=== PATIENT | female | born 1960 | race Caucasian/White ===

== ENCOUNTER 2019-08-06 08:08 | Emergency (ER) | payer SELFPAY ==
[2019-08-06] MEDS ORDERED: Acetaminophen 325 MG Tab PO ONE (08:38)
[2019-08-06] MEDS ORDERED: Ketorolac 60 MG/2 ML SDV IM ONE (08:38)
--- NOTE | 2019-08-06 08:39 | EDM.PDOC ---
ED HPI GENERAL MEDICAL PROBLEM - General Chief Complaint: Back Pain or Injury Stated Complaint: BACK PAIN Time Seen by Provider: 08/06/19 08:33 Source of Information: Reports: Patient, RN Notes Reviewed - History of Present Illness INITIAL COMMENTS - FREE TEXT/NARRATIVE: 58-year-old lady injured her left low back this morning about 3 hours ago. She had a hard cough with sudden onset of pain left low back. Continues to have pain left low back which is worse with any type of movement. Pain does not radiate down into either leg. Not been having any other back discomfort recently. There has been no fall or injury. She has not taken anything for pain. Left Back Pain Score (Numeric/FACES): 10 - Related Data Allergies Allergy/AdvReac Type Severity Reaction Status Date / Time Penicillins Allergy Cannot Verified 08/06/19 08:26 Remember Sulfa (Sulfonamide Allergy Hives Verified 08/06/19 08:26 Antibiotics) Home Meds: Home Meds Acetaminophen/HYDROcodone [[place] 325-5 MG] 1 tab PO Q6H PRN #10 tablet 08/06/19 [Rx] ED ROS GENERAL - Review of Systems Review Of Systems: See Below Constitutional: Denies: Fever HEENT: Reports: No Symptoms Respiratory: Denies: Shortness of Breath Cardiovascular: Denies: Chest Pain GI/Abdominal: Denies: Abdominal Pain, Nausea, Vomiting Musculoskeletal: Reports: Back Pain. Denies: Leg Pain Skin: Reports: No Symptoms Neurological: Reports: No Symptoms ED EXAM,LOWER BACK PAIN/INJURY - Physical Exam Exam: See Below General Appearance: Alert, Mild Distress Head: Atraumatic Neck: Supple, Non-Tender Respiratory/Chest: No Respiratory Distress, Lungs Clear, Normal Breath Sounds Cardiovascular: Regular Rate, Rhythm GI/Abdominal: Soft, Non-Tender Back Exam: Paraspinal Tenderness (L low back) Extremities: Normal Inspection, Normal Range of Motion Neurological: Alert, No Motor/Sensory Deficits Course - Vital Signs Last Recorded V/S: Last Vital Signs Temp 97.6 F 08/06/19 08:23 Pulse 86 08/06/19 08:23 Resp 18 08/06/19 08:23 BP 116/93 H 08/06/19 08:23 Pulse Ox 96 08/06/19 08:23 - Orders/Labs/Meds Meds: Medications Discontinued Medications Generic Name Dose Route Start Last Admin Trade Name Freq PRN Reason Stop Dose Admin Acetaminophen 975 mg 08/06/19 08:38 Tylenol PO 08/06/19 08:39 NOW ONE Ketorolac Tromethamine 60 mg 08/06/19 08:38 Toradol IM 08/06/19 08:39 ONETIME ONE - Re-Assessments/Exams Free Text/Narrative Re-Assessment/Exam: 08/06/19 09:02 I been informed that patient left her room, apparently went home prior to getting her Toradol. Discharge instructions prepared but patient has eloped. Departure - Departure Time of Disposition: 08:57 Disposition: Home, Self-Care 01 Condition: Fair Clinical Impression: Low back strain - Discharge Information Prescriptions: Acetaminophen/HYDROcodone [[place] 325-5 MG] 1 tab PO Q6H PRN #10 tablet PRN Reason: Pain Instructions: Acute Back Pain, Adult Referrals: PCP,Unknown [Primary Care Provider] - Forms: ED Department Discharge Additional Instructions: Advil or ibuprofen 600 mg 2-3 times daily for pain and inflammation, Tylenol in between doses for extra pain relief or hydrocodone if needed for severe pain. Do not take Tylenol and hydrocodone at the same time. Do not drive or work when taking hydrocodone. Follow up with your regular medical provider if not much better within 3-4 days as expected. Alternate ice and heat to low back as needed.
== END 2019-08-06 09:00 | disposition home or self-care (01) ==
LOC: JD.ED 08:08
DX: S39.012A Strain of muscle, fascia and tendon of lower back, initial encounter (principal); Z88.0 Allergy status to penicillin; Z88.2 Allergy status to sulfonamides; X58.XXXA Exposure to other specified factors, initial encounter
CPT/HCPCS: 99283

== ENCOUNTER 2021-10-30 16:23 | Emergency (ER) | payer OTHER ==
[2021-10-30] MEDS ORDERED: Sodium Chloride 0.9% 10 ML Syringe FLUSH PRN (17:27)
[2021-10-30] MEDS ORDERED: Sodium Chloride 0.9% 1,000 ML IV SCH (17:30)
[2021-10-30] MEDS ORDERED: Sodium Chloride 0.9% 10 ML Syringe FLUSH ONE (17:44)
[2021-10-30] MEDS ORDERED: Iopamidol 612 MG/ML 100 ML Bottle IVPUSH ONE (17:44)
--- NOTE | 2021-10-30 18:32 | EDM.PDOC ---
ED HPI GENERAL MEDICAL PROBLEM - General Chief Complaint: Gastrointestinal Problem Stated Complaint: RASH/REDNESS ABDOMINAL AREA Time Seen by Provider: 10/30/21 17:04 Source of Information: Reports: Patient History Limitations: Reports: No Limitations - History of Present Illness INITIAL COMMENTS - FREE TEXT/NARRATIVE: The patient presents with pain and redness to a ventral hernia. The patient saw Dr Bacon and has surgery scheduled here on 11/07/21. She saw him last week and there was a little redness to the skin over the hernia. Now there is more erythema and pain. She has no fever, chills, cough, chest pain, nausea or vomiting. She has no diarrhea. She is still having bowel movements. Onset: Gradual Duration: Week(s): Location: Reports: Abdomen Quality: Reports: Sharp Severity: Moderate Improves with: Reports: None Worsens with: Reports: None Associated Symptoms: Reports: No Other Symptoms Abdomen Pain Score (Numeric/FACES): 2 - Related Data Allergies Allergy/AdvReac Type Severity Reaction Status Date / Time Penicillins Allergy Cannot Verified 10/30/21 16:56 Remember Sulfa (Sulfonamide Allergy Hives Verified 10/30/21 16:56 Antibiotics) Home Meds: Home Meds cephALEXin [Keflex] 500 mg PO QID #40 cap 10/30/21 [Rx] Past Medical History - Past Health History Medical/Surgical History: Denies Medical/Surgical History Gastrointestinal History: Reports: Other (See Below) Other Gastrointestinal History: Abdominal hernia Social & Family History - Family History Family Medical History: No Pertinent Family History - Tobacco Use Tobacco Use Status *Q: Current Some Day Tobacco User Years of Tobacco use: 30 Packs/Tins Daily: 0.1 - Caffeine Use Caffeine Use: Reports: Coffee - Recreational Drug Use Recreational Drug Use: No ED ROS GENERAL - Review of Systems Review Of Systems: See Below Constitutional: Reports: No Symptoms HEENT: Reports: No Symptoms Respiratory: Reports: No Symptoms Cardiovascular: Reports: No Symptoms Endocrine: Reports: No Symptoms GI/Abdominal: Reports: Abdominal Pain. Denies: Diarrhea, Nausea, Vomiting : Reports: No Symptoms Musculoskeletal: Reports: No Symptoms Skin: Reports: No Symptoms ED EXAM, GI/ABD - Physical Exam Exam: See Below Exam Limited By: No Limitations General Appearance: Alert, No Apparent Distress Ears: Normal External Exam Nose: Normal Inspection Head: Atraumatic, Normocephalic Neck: Normal Inspection Respiratory/Chest: No Respiratory Distress, Lungs Clear, Normal Breath Sounds Cardiovascular: Regular Rate, Rhythm, No Edema, No Murmur GI/Abdominal Exam: Soft, No Organomegaly, Pelvis Stable, Tender (to the ventral hernia with erythema to that area) Course - Vital Signs Last Recorded V/S: Last Vital Signs Temp 97.4 F 10/30/21 16:54 Pulse 68 10/30/21 16:54 Resp 16 10/30/21 16:54 BP 113/83 10/30/21 16:54 Pulse Ox 97 10/30/21 16:54 - Orders/Labs/Meds Orders: Active Orders 24 hr Category Date Time Status Peripheral IV Care [RC] . DIRECTED Care 10/30/21 17:28 Active Sodium Chloride 0.9% [Normal Saline] 1,000 ml Med 10/30/21 17:30 Active IV ASDIRECTED Sodium Chloride 0.9% [Saline Flush] Med 10/30/21 17:27 Active 10 ml FLUSH ASDIRECTED PRN cephALEXin [Keflex] Med 10/30/21 19:24 Once 500 mg PO ONETIME ONE Peripheral IV Insertion Adult [OM.PC] Stat Oth 10/30/21 17:27 Ordered Medication Orders Sodium Chloride (Normal Saline) 1,000 mls @ 125 mls/hr IV ASDIRECTED CHARLES Last Admin: 10/30/21 17:47 Dose: 125 mls/hr Documented by: ANGIE Sodium Chloride (Sodium Chloride 0.9% 10 Ml Syringe) 10 ml FLUSH ASDIRECTED PRN PRN Reason: Keep Vein Open Last Admin: 10/30/21 18:27 Dose: 10 ml Documented by: SOFY Labs: Laboratory Tests 10/30/21 10/30/21 Range/Units 18:00 18:00 WBC 7.36 (3.98-10.04) K/mm3 RBC 4.78 (3.98-5.22) M/mm3 Hgb 14.2 (11.2-15.7) gm/dl Hct 43.5 (34.1-44.9) % MCV 91.0 (79.4-94.8) fl MCH 29.7 (25.6-32.2) pg MCHC 32.6 (32.2-35.5) g/dl RDW Std Deviation 45.7 (36.4-46.3) fL Plt Count 203 (182-369) K/mm3 MPV 10.7 (9.4-12.3) fl Neut % (Auto) 53.5 (34.0-71.1) % Lymph % (Auto) 33.6 (19.3-51.7) % [place] % (Auto) 7.3 (4.7-12.5) % Eos % (Auto) 4.8 (0.7-5.8) Baso % (Auto) 0.4 (0.1-1.2) % Neut # (Auto) 3.94 (1.56-6.13) K/mm3 Lymph # (Auto) 2.47 (1.18-3.74) K/mm3 [place] # (Auto) 0.54 H (0.24-0.36) K/mm3 Eos # (Auto) 0.35 (0.04-0.36) K/mm3 Baso # (Auto) 0.03 (0.01-0.08) K/mm3 Sodium 141 (136-145) mEq/L Potassium 4.9 (3.5-5.1) mEq/L Chloride 106 (98-107) mEq/L Carbon Dioxide 27 (21-32) mEq/L Anion Gap 12.9 (5-15) BUN 14 (7-18) mg/dL Creatinine 0.6 (0.55-1.02) mg/dL Est Cr Clr Drug Dosing 71.62 mL/min Estimated GFR (MDRD) > 60 (>60) mL/min BUN/Creatinine Ratio 23.3 H (14-18) Glucose 111 H (70-99) mg/dL Calcium 9.2 (8.5-10.1) mg/dL Total Bilirubin 0.5 (0.2-1.0) mg/dL AST 33 (15-37) U/L ALT 26 (14-59) U/L Alkaline Phosphatase 113 (46-116) U/L C-Reactive Protein <0.2 (<1.0) mg/dL Total Protein 6.9 (6.4-8.2) g/dl Albumin 3.2 L (3.4-5.0) g/dl Globulin 3.7 gm/dL Albumin/Globulin Ratio 0.9 L (1-2) Meds: Medications Generic Name Dose Route Start Last Admin Trade Name Domenico PRN Reason Stop Dose Admin Sodium Chloride 1,000 mls @ 125 mls/hr 10/30/21 17:30 10/30/21 17:47 Normal Saline IV 125 mls/hr ASDIRECTED CHARLES Administration Sodium Chloride 10 ml 10/30/21 17:27 10/30/21 18:27 Sodium Chloride 0.9% 10 Ml Syringe FLUSH 10 ml ASDIRECTED PRN Administration Keep Vein Open Discontinued Medications Generic Name Dose Route Start Last Admin Trade Name Domenico PRN Reason Stop Dose Admin Iopamidol 100 ml 10/30/21 17:44 10/30/21 18:27 Iopamidol 612 Mg/Ml 100 Ml Bottle IVPUSH 10/30/21 17:45 100 ml ONETIME ONE Administration Sodium Chloride 10 ml 10/30/21 17:44 10/30/21 17:47 Sodium Chloride 0.9% 10 Ml Syringe FLUSH 10/30/21 17:45 10 ml ONETIME ONE Administration - Re-Assessments/Exams Free Text/Narrative Re-Assessment/Exam: 10/30/21 18:29 I ordered an IV NS at 125mL/hr, labs and a CT of her abdomen and pelvis with IV contrast only. The patient was kind of upset about getting another CT and that I am using contrast. She said before when this all started she had a CT scan with contrast and nothing showed up. This last time, they used no contrast and they found the hernia. I explained to her that hernias can reduce and they may not have found it on CT that time and contrast had nothing to do with it. I also explained that the scan is necessary to see if the hernia is incarcerated. She is in agreement. 10/30/21 19:[address] shows anterior fat-containing abdominal hernia located above the umbilicus. Slight inflammatory change is seen within the hernia with mild adjacent skin thickening. Cysts felt to be present within the liver. Other findings believed to be chronic. She feels good. I feel she has some cellulitis to her abdomen. I have ordered keflex now and a prescription for more. Departure - Departure Time of Disposition: 19:30 Disposition: Home, Self-Care 01 Condition: Good Clinical Impression: Cellulitis Qualifiers: Site of cellulitis: trunk Site of cellulitis of trunk: abdominal wall Qualified Code(s): L03.311 - Cellulitis of abdominal wall - Discharge Information *PRESCRIPTION DRUG MONITORING PROGRAM REVIEWED*: Not Applicable *COPY OF PRESCRIPTION DRUG MONITORING REPORT IN PATIENT BRYAN: Not Applicable Prescriptions: cephALEXin [Keflex] 500 mg PO QID #40 cap Referrals: PCP,None [Primary Care Provider] - Isis Bacon MD [Physician] - 1 Week Forms: ED Department Discharge Additional Instructions: Take the keflex 4 times per day for 10 days. Drink plenty of fluids. Take tylenol or motrin for pain. Follow up with Dr Bacon. Please return if you are worse. Sepsis Event Note (ED) - Evaluation Sepsis Screening Result: No Definite Risk - Focused Exam Vital Signs: Vital Signs Temp Pulse Resp BP Pulse Ox 10/30/21 16:54 97.4 F 68 16 113/83 97 - My Orders Last 24 Hours: My Active Orders 10/30/21 17:27 Sodium Chloride 0.9% [Saline Flush] 10 ml FLUSH ASDIRECTED PRN Peripheral IV Insertion Adult [OM.PC] Stat 10/30/21 17:28 Peripheral IV Care [RC] . DIRECTED 10/30/21 17:30 Sodium Chloride 0.9% [Normal Saline] 1,000 ml IV ASDIRECTED 10/30/21 19:24 cephALEXin [Keflex] 500 mg PO ONETIME ONE - Assessment/Plan Last 24 Hours: My Active Orders 10/30/21 17:27 Sodium Chloride 0.9% [Saline Flush] 10 ml FLUSH ASDIRECTED PRN Peripheral IV Insertion Adult [OM.PC] Stat 10/30/21 17:28 Peripheral IV Care [RC] . DIRECTED 10/30/21 17:30 Sodium Chloride 0.9% [Normal Saline] 1,000 ml IV ASDIRECTED 10/30/21 19:24 cephALEXin [Keflex] 500 mg PO ONETIME ONE
--- NOTE | 2021-10-30 18:50 | CT ---
CT abdomen and pelvis Technique: Multiple axial sections were obtained from above the dome of the diaphragm inferiorly through the pubic symphysis. Intravenous contrast was utilized. Reconstructed coronal and sagittal images were obtained. Comparison: No prior CT abdomen or pelvis study is available. Findings: Visualized lung bases show nothing acute. Numerous low density lesions are seen within the right and left lobes of the liver. Most of these findings are too small to measure although the larger lesions have Hounsfield unit measurement of a cyst. Larger lesion measures approximately 1.5 cm. Spleen appears within normal limits. Adrenal glands show no nodule. Pancreas appears within normal limits. Kidneys show symmetric contrast enhancement. No hydronephrosis or discrete mass is seen. Abdominal aorta shows no aneurysm. No retroperitoneal adenopathy is seen. No mesenteric abnormalities are seen. No pelvic mass or adenopathy is seen. Fat-containing anterior abdominal wall hernia is seen above the umbilicus. This hernia has an opening of 4.2 cm. There is very slight inflammatory type change seen within this hernia. Slight adjacent skin thickening is also noted. Small fat-containing umbilical hernia is noted. Bone window settings were reviewed which show slight degenerative change within the spine. No acute osseous abnormality is appreciated. Impression: 1. Anterior fat-containing abdominal hernia located above the umbilicus. Slight inflammatory change is seen within the hernia with mild adjacent skin thickening. 2. Cysts felt to be present within the liver as described above. 3. Other findings believed to be chronic as noted above. Diagnostic code #3
[2021-10-30] MEDS ORDERED: Cephalexin 500 MG Cap PO ONE (19:24)
== END 2021-10-30 19:45 | disposition home or self-care (01) ==
LOC: JD.ED 16:23
DX: L03.311 Cellulitis of abdominal wall (principal); Z88.0 Allergy status to penicillin; Z88.2 Allergy status to sulfonamides; Z72.0 Tobacco use
CPT/HCPCS: 36415; 74177; 80053; 85025; 86140; 99284; A9270; J7030; Q9967

== ENCOUNTER 2021-11-10 02:20 | Emergency (ER) | payer OTHER ==
[2021-11-10] MEDS ORDERED: Sodium Chloride 0.9% 10 ML Syringe FLUSH PRN (02:36)
--- NOTE | 2021-11-10 02:44 | EDM.PDOC ---
ED HPI GENERAL MEDICAL PROBLEM - General Chief Complaint: Chest Pain Stated Complaint: CHEST WAS HURTING Time Seen by Provider: 11/10/21 02:32 Source of Information: Reports: Patient History Limitations: Reports: No Limitations - History of Present Illness INITIAL COMMENTS - FREE TEXT/NARRATIVE: The patient has a ventral hernia and she had some pain in her abdomen where the hernia is and it radiated up into her chest. She was short of breath with the pain. The pain is gone now. She has no fever, chills, cough, nausea or vomiting. She has no history of heart troubles. She quit smoking a few weeks ago. She has no history of hypertension or hypercholesterolemia. Onset: Sudden Duration: Minutes: Location: Reports: Chest, Abdomen Quality: Reports: Sharp Severity: Severe Improves with: Reports: None Worsens with: Reports: None Associated Symptoms: Reports: Chest Pain, Shortness of Breath. Denies: Cough, Fever/Chills, Headaches, Nausea/Vomiting chest pain Pain Score (Numeric/FACES): 1 - Related Data Allergies Allergy/AdvReac Type Severity Reaction Status Date / Time Penicillins Allergy Cannot Verified 10/30/21 16:56 Remember Sulfa (Sulfonamide Allergy Hives Verified 10/30/21 16:56 Antibiotics) Home Meds: Home Meds cephALEXin [Keflex] 500 mg PO QID #40 cap 10/30/21 [Rx] cephALEXin [Keflex] 500 mg PO QID #40 cap 10/30/21 [Rx] Past Medical History - Past Health History Medical/Surgical History: Denies Medical/Surgical History Gastrointestinal History: Reports: Other (See Below) Other Gastrointestinal History: Abdominal hernia, getting sx on Sunday Social & Family History - Family History Family Medical History: No Pertinent Family History - Tobacco Use Tobacco Use Status *Q: Current Every Day Tobacco User Years of Tobacco use: 25 Packs/Tins Daily: 1 - Caffeine Use Caffeine Use: Reports: None - Recreational Drug Use Recreational Drug Use: No ED ROS GENERAL - Review of Systems Review Of Systems: See Below Constitutional: Reports: No Symptoms HEENT: Reports: No Symptoms Respiratory: Reports: Shortness of Breath. Denies: Cough Cardiovascular: Reports: Chest Pain Endocrine: Reports: No Symptoms GI/Abdominal: Reports: No Symptoms : Reports: No Symptoms Musculoskeletal: Reports: No Symptoms Skin: Reports: No Symptoms Neurological: Reports: No Symptoms ED EXAM, GENERAL - Physical Exam Exam: See Below Exam Limited By: No Limitations General Appearance: Alert, No Apparent Distress Ears: Normal External Exam Nose: Normal Inspection Head: Atraumatic, Normocephalic Neck: Normal Inspection Respiratory/Chest: No Respiratory Distress, Lungs Clear, Normal Breath Sounds Cardiovascular: Regular Rate, Rhythm, No Edema, No Murmur, No Rub GI/Abdominal: Soft, Non-Tender, No Organomegaly, Other (ventral hernia without tenderness and no erythema) Extremities: Normal Inspection Neurological: Alert, Oriented, No Motor/Sensory Deficits #1 Interpretation EKG Date: 11/10/21 Time: 02:26 Rhythm: NSR Rate (Beats/Min): 74 [place]: Normal P-Wave: Present QRS: Normal ST-T: Other (Inverted T waves in the anterior leads) QT: Normal Course - Vital Signs Last Recorded V/S: Last Vital Signs Temp 97.4 F 11/10/21 02:27 Pulse 73 11/10/21 02:27 Resp 18 11/10/21 02:27 BP 118/88 11/10/21 02:27 Pulse Ox 94 L 11/10/21 02:27 - Orders/Labs/Meds Orders: Active Orders 24 hr Category Date Time Status Cardiac Monitoring [RC] . DIRECTED Care 11/10/21 02:36 Active Peripheral IV Care [RC] . DIRECTED Care 11/10/21 02:37 Active Chest 1V Frontal [CR] Stat Exams 11/10/21 02:37 Taken Sodium Chloride 0.9% [Saline Flush] Med 11/10/21 02:36 Active 10 ml FLUSH ASDIRECTED PRN Peripheral IV Insertion Adult [OM.PC] Stat Oth 11/10/21 02:36 Ordered Medication Orders Sodium Chloride (Sodium Chloride 0.9% 10 Ml Syringe) 10 ml FLUSH ASDIRECTED PRN PRN Reason: Keep Vein Open Last Admin: 11/10/21 02:39 Dose: 10 ml Documented by: JUDY Labs: Laboratory Tests 11/10/21 11/10/21 Range/Units 02:35 02:35 WBC 7.82 (3.98-10.04) K/mm3 RBC 4.69 (3.98-5.22) M/mm3 Hgb 13.9 (11.2-15.7) gm/dl Hct 43.3 (34.1-44.9) % MCV 92.3 (79.4-94.8) fl MCH 29.6 (25.6-32.2) pg MCHC 32.1 L (32.2-35.5) g/dl RDW Std Deviation 46.1 (36.4-46.3) fL Plt Count 224 (182-369) K/mm3 MPV 10.3 (9.4-12.3) fl Neut % (Auto) 53.9 (34.0-71.1) % Lymph % (Auto) 32.4 (19.3-51.7) % [place] % (Auto) 7.7 (4.7-12.5) % Eos % (Auto) 5.1 (0.7-5.8) Baso % (Auto) 0.6 (0.1-1.2) % Neut # (Auto) 4.22 (1.56-6.13) K/mm3 Lymph # (Auto) 2.53 (1.18-3.74) K/mm3 [place] # (Auto) 0.60 H (0.24-0.36) K/mm3 Eos # (Auto) 0.40 H (0.04-0.36) K/mm3 Baso # (Auto) 0.05 (0.01-0.08) K/mm3 Sodium 142 (136-145) mEq/L Potassium 4.0 (3.5-5.1) mEq/L Chloride 106 (98-107) mEq/L Carbon Dioxide 27 (21-32) mEq/L Anion Gap 13.0 (5-15) BUN 21 H (7-18) mg/dL Creatinine 1.0 (0.55-1.02) mg/dL Est Cr Clr Drug Dosing 42.97 mL/min Estimated GFR (MDRD) 57 (>60) mL/min BUN/Creatinine Ratio 21.0 H (14-18) Glucose 125 H (70-99) mg/dL Calcium 8.9 (8.5-10.1) mg/dL Total Bilirubin 0.3 (0.2-1.0) mg/dL AST 18 (15-37) U/L ALT 33 (14-59) U/L Alkaline Phosphatase 102 (46-116) U/L Troponin I < 0.017 (0.00-0.056) ng/mL Total Protein 6.9 (6.4-8.2) g/dl Albumin 3.2 L (3.4-5.0) g/dl Globulin 3.7 gm/dL Albumin/Globulin Ratio 0.9 L (1-2) Lipase 92 (73-393) U/L Meds: Medications Generic Name Dose Route Start Last Admin Trade Name Freq PRN Reason Stop Dose Admin Sodium Chloride 10 ml 11/10/21 02:36 11/10/21 02:39 Sodium Chloride 0.9% 10 Ml Syringe FLUSH 10 ml ASDIRECTED PRN Administration Keep Vein Open - Re-Assessments/Exams Free Text/Narrative Re-Assessment/Exam: 11/10/21 02:47 I ordered an IV saline lock, EKG, CXR and labs. Her EKG shows a NSR with some flipped T waves in the anterior leads. 11/10/21 03:41 Her CXR looks good. Her CBC and CMP look good. Her troponin is negative. She is feeling good. I feel this may have been related to her hernia. She gets it operated on Sunday. Departure - Departure Time of Disposition: 03:45 Disposition: Home, Self-Care 01 Condition: Good Clinical Impression: Atypical chest pain Referrals: PCP,None [Primary Care Provider] - Isis Bacon MD [Physician] - 1 Week Forms: ED Department Discharge Additional Instructions: Drink plenty of fluids. Take tylenol or motrin for pain. Please return if you are worse. Sepsis Event Note (ED) - Evaluation Sepsis Screening Result: No Definite Risk - Focused Exam Vital Signs: Vital Signs Temp Pulse Resp BP Pulse Ox 11/10/21 02:27 97.4 F 73 18 118/88 94 L - My Orders Last 24 Hours: My Active Orders 11/10/21 02:36 Cardiac Monitoring [RC] . DIRECTED Sodium Chloride 0.9% [Saline Flush] 10 ml FLUSH ASDIRECTED PRN Peripheral IV Insertion Adult [OM.PC] Stat 11/10/21 02:37 Peripheral IV Care [RC] . DIRECTED Chest 1V Frontal [CR] Stat - Assessment/Plan Last 24 Hours: My Active Orders 11/10/21 02:36 Cardiac Monitoring [RC] . DIRECTED Sodium Chloride 0.9% [Saline Flush] 10 ml FLUSH ASDIRECTED PRN Peripheral IV Insertion Adult [OM.PC] Stat 11/10/21 02:37 Peripheral IV Care [RC] . DIRECTED Chest 1V Frontal [CR] Stat
--- NOTE | 2021-11-10 08:29 | CR ---
Chest: Portable view of the chest was obtained. Comparison: No prior chest imaging is available. Heart size is normal. Tortuous thoracic aorta is seen. Lung markings are mildly increased. Lungs otherwise are clear. Bony structures show nothing acute. Impression: 1. Lung markings are slightly increased which are most likely chronic, no prior study is available to absolutely confirm. 2. Nothing acute is otherwise seen on portable chest x-ray. Diagnostic code #2
== END 2021-11-10 03:49 | disposition home or self-care (01) ==
LOC: JD.ED 02:20
DX: R07.89 Other chest pain (principal); Z88.0 Allergy status to penicillin; Z88.2 Allergy status to sulfonamides; Z72.0 Tobacco use
CPT/HCPCS: 36415; 71045; 71045-26; 80053; 83690; 84484; 85025; 93005; 99285-25

== ENCOUNTER 2021-11-14 08:12 | Day surgery (SDC) | payer OTHER ==
--- NOTE | 2021-11-14 08:05 | PCM.PREANE ---
Preanesthetic Assessment - Procedure Proposed Procedure: Laparoscopic Ventral Hernia Repair, Possible open with Mesh. - Anesthesia/Transfusion/Family Hx Anesthesia History: No Prior Anesthesia Family History of Anesthesia Reaction: No Transfusion History: No Prior Transfusion(s) Intubation History: Unknown - Review of Systems General: No Symptoms Pulmonary: No Symptoms (Smoker: 1/4ppd times 45 years/none for one week/ETOH: rarely), Cough Cardiovascular: No Symptoms, Chest Pain (epigastric pain recently with negative work up noted; attributed to ventral hernia.) Gastrointestinal: No Symptoms, Abdominal Pain (epigastric pain) Neurological: No Symptoms, Headache (migraines) Other: Reports: None (```````````````````````````````````````) - Physical Assessment NPO Status Date: 11/13/21 NPO Status Time: 23:30 Vital Signs: HR: 81 Sat: 95% Temp: 98.8 B/P: 108/75 Resp: 20 Height: 1.52 m Weight: 77 kg ASA Class: 3 Mental Status: Alert & Oriented x3 Airway Class: Mallampati = 2 Dentition: Reports: Broken Tooth/Teeth, Missing Tooth/Teeth, Caries Thyro-Mental Finger Breadths: 3 Mouth Opening Finger Breadths: 3 ROM/Head Extension: Full Lungs: Clear to Auscultation, Normal Respiratory Effort Cardiovascular: Regular Rate, Regular Rhythm, No Murmurs - Lab Values: All labs reviewed and noted and within acceptable ranges to proceed with scheduled procedure. - Imaging/EKG Impressions: EKG: SR rate= 74, nonospecific T wave abnormalities anterior leads 11/10/2021 CXR: negative 11/10/2021 - Allergies Allergies/Adverse Reactions: Allergies Allergy/AdvReac Type Severity Reaction Status Date / Time Penicillins Allergy Cannot Verified 11/10/21 09:30 Remember Sulfa (Sulfonamide Allergy Hives Verified 11/10/21 09:30 Antibiotics) - Anesthesia Plan Pre-Op Medication Ordered: None - Acknowledgements Anesthesia Type Planned: General Anesthesia Pt an Appropriate Candidate for the Planned Anesthesia: Yes Alternatives and Risks of Anesthesia Discussed w Pt/Guardian: Yes Pt/Guardian Understands and Agrees with Anesthesia Plan: Yes PreAnesthesia Questionnaire - Past Health History Medical/Surgical History: Denies Medical/Surgical History Gastrointestinal History: Reports: Other (See Below) Other Gastrointestinal History: Abdominal hernia [employer] History: Reports: Other Musculoskeletal History: chest wall muscle strain - SUBSTANCE USE Tobacco Use Status *Q: Current Every Day Tobacco User Tobacco Use Within Last Twelve Months: Cigarettes Recreational Drug Use History: No - HOME MEDS Home Medications: Home Meds Cyclobenzaprine [Flexeril] 1 tab PO TID 11/10/21 [History] - CURRENT (IN HOUSE) MEDS Current Meds: Current Medications Lactated Ringer's (Ringers, Lactated) 1,000 mls @ 125 mls/hr IV ASDIRECTED [facility] Stop: 11/14/21 23:00 Lidocaine/Sodium Bicarbonate (Lidocaine 1%/Sod Bicarbonate In Ns 8.4% 1 Ml Syringe) 0.25 ml IDERM ONETIME PRN PRN Reason: Prior to IV Start Stop: 11/14/21 18:00 Sodium Chloride (Sodium Chloride 0.9% 10 Ml Syringe) 10 ml FLUSH 0900,2100 [facility] Stop: 11/14/21 18:00 Discontinued Medications Bupivacaine HCl (Bupivacaine 0.5% 30 Ml Sdv) Confirm Administered Dose 30 ml .ROUTE .STK-MED ONE Stop: 11/14/21 07:53 Dexamethasone (Dexamethasone 4 Mg/Ml 5 Ml Mdv) Confirm Administered Dose 20 mg .ROUTE .STK-MED ONE Stop: 11/14/21 07:29 Fentanyl (Fentanyl 250 Mcg/5 Ml Sdv) Confirm Administered Dose 250 mcg .ROUTE .STK-MED ONE Stop: 11/14/21 07:27 Lactated Ringer's (Ringers, Lactated) 1,000 mls @ 125 mls/hr IV ASDIRECTED [facility] Stop: 11/07/21 23:00 Lidocaine HCl (Xylocaine-Mpf 1%) Confirm Administered Dose 4 mls @ as directed .ROUTE .STK-MED ONE Stop: 11/14/21 07:27 Lidocaine/Sodium Bicarbonate (Lidocaine 1%/Sod Bicarbonate In Ns 8.4% 1 Ml Syringe) 0.25 ml IDERM ONETIME PRN PRN Reason: Prior to IV Start Stop: 11/07/21 18:00 Midazolam HCl (Midazolam 1 Mg/Ml 2 Ml Sdv) Confirm Administered Dose 2 mg .ROUTE .STK-MED ONE Stop: 11/14/21 07:27 Ondansetron HCl (Ondansetron 4 Mg/2 Ml Sdv) Confirm Administered Dose 4 mg .ROUTE .STK-MED ONE Stop: 11/14/21 07:29 Propofol (Propofol 200 Mg/20 Ml Sdv) Confirm Administered Dose 200 mg .ROUTE .STK-MED ONE Stop: 11/14/21 07:27 Rocuronium Leigh (Rocuronium 50 Mg/5 Ml Vial) Confirm Administered Dose 50 mg .ROUTE .STSpeedDate-MED ONE Stop: 11/14/21 07:29 Sodium Chloride (Sodium Chloride 0.9% 10 Ml Syringe) 10 ml FLUSH 0900,2100 [facility] Stop: 11/07/21 18:00
[~2021-11-14 08:12] MED LIST: Bupivacaine 0.5% 30 ML SDV ONE; Dexamethasone 4 MG/ML 5 ML MDV ONE; Lactated Ringers 1,000 ML IV SCH; Lidocaine 1% 4 ML ONE; Lidocaine 1%/Sod Bicarbonate in NS 8.4% 1 ML Syringe IDERM PRN; Midazolam 1 MG/ML 2 ML SDV ONE; Ondansetron 4 MG/2 ML SDV ONE; Propofol 200 MG/20 ML SDV ONE; Rocuronium 50 MG/5 ML Vial ONE; Sodium Chloride 0.9% 10 ML Syringe FLUSH SCH; fentaNYL 250 MCG/5 ML SDV ONE
[2021-11-14] MEDS: Lactated Ringers 1,000 ML IV SCH ×2 (08:50→21:30)
[2021-11-14] MEDS ORDERED: ceFAZolin 1 GM Vial ONE (10:57)
[2021-11-14] MEDS ORDERED: Lactated Ringers 1,000 ML ONE ×2 (10:59→12:45)
[2021-11-14] MEDS ORDERED: Lactated Ringers 0 ML ONE (10:59)
[2021-11-14] MEDS ORDERED: Rocuronium 50 MG/5 ML Vial ONE (11:04)
[2021-11-14] MEDS ORDERED: Ketamine 500 mg/10 ML MDV ONE (12:07)
[2021-11-14] MEDS ORDERED: HYDROmorphone 0.5 MG/0.5 ML Syringe ONE (12:37)
[2021-11-14] MEDS ORDERED: Ondansetron 4 MG/2 ML SDV IVPUSH PRN (12:41)
[2021-11-14] MEDS ORDERED: HYDROmorphone 0.5 MG/0.5 ML Syringe IVPUSH PRN (12:41)
[2021-11-14] MEDS ORDERED: Bupivacaine 0.5% 30 ML SDV ONE (12:43)
[2021-11-14] MEDS: fentaNYL 100 MCG/2 ML SDV IVPUSH PRN ×2 (13:33→13:46)
--- NOTE | 2021-11-14 13:40 | PCM.POSTAN ---
POST ANESTHESIA ASSESSMENT - MENTAL STATUS Mental Status: Alert, Oriented, Other - VITAL SIGNS Vital Signs: Last Vital Signs Temp 36.6 C 11/14/21 13:27 Pulse 81 11/14/21 08:25 Resp 12 11/14/21 13:27 BP 126/91 H 11/14/21 13:27 Pulse Ox 97 11/14/21 13:27 - RESPIRATORY Respiratory Status: Respiratory Rate WNL, Airway Patent, O2 Saturation Stable - CARDIOVASCULAR CV Status: Pulse Rate WNL, Blood Pressure Stable - GASTROINTESTINAL GI Status: No Symptoms - PAIN Pain Score: 5 (being treated with post op orders by CORE MAKER ) - POST OP HYDRATION Hydration Status: Adequate & Stable
--- NOTE | 2021-11-14 14:06 | OR ---
DATE OF OPERATION: 11/14/2021 SURGEON: Isis Bacon MD PREOPERATIVE DIAGNOSIS: Symptomatic ventral anterior abdominal wall hernia. POSTOPERATIVE DIAGNOSIS: Symptomatic ventral anterior abdominal wall hernia. OPERATION PERFORMED: Laparoscopic ventral hernia repair with mesh. ESTIMATED BLOOD LOSS: 25 mL. ANESTHESIA: General endotracheal anesthesia plus local anesthetic consisting of 0.5% Marcaine without epinephrine. COMPLICATIONS: None. FINDINGS: There was a 4 cm x 3 cm supraumbilical ventral hernia defect with containing omentum and preperitoneal fat. INDICATIONS AND CONSENT: The patient is a 61-year-old female, who has had a ventral hernia repair for many years. In the recent years, this hernia has become painful. 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 In the past couple of weeks, the pain had become so bad that the patient stopped going to work and came to see me in clinic. I diagnosed her with ventral hernia repair given exam and recommended laparoscopic repair of this hernia. The patient is a smoker, but otherwise she does not visit physicians very often. We discussed the risks, benefits, and alternatives to the procedure and informed consent was obtained. NEED FOR ASSISTANCE: Skilled assistance of nurse practitioner, Caitlin Crocker CNP was needed. She assisted with patient positioning, holding retractors and camera during the procedure and incision closure at the end of the procedure. DESCRIPTION OF PROCEDURE: The patient was taken to the operating room and placed in supine position. The patient was padded appropriately. Preop antibiotics were given. General endotracheal anesthesia was induced. Time-out was performed. Then, abdomen was prepped and draped in the usual sterile fashion. Then, we began the procedure by making a stab incision at the Lerma's point in the left upper quadrant and placing a Veress needle. The abdomen was insufflated to 15 mmHg. Then, a 5-mm trocar was placed in the left lateral abdomen under visualization of laparoscope. Abdomen was entered. Immediately, we were able to see the hernia, most of the omental contents had reduced except for small adhesions at the edge of the hernia. There were no injuries to Veress needle insertion or trocar insertion. Then, the Veress needle was removed. Two additional 5-mm trocars were placed in the left lateral abdomen. The remaining hernia contents consisting of omentum were taken down and using a grasper and LigaSure, then we proceeded with taking down the hernia sac as well as preperitoneal fat within the hernia. These were taken down circumferentially around the hernia and reduced it back into the abdomen. Then, insufflation was reduced to 10 and using a spinal needle, we measured the hernia defect to be 4 cm from left to right and 3 cm craniocaudal direction. Then, we proceeded with primary closure. All PDS stitches were placed transabdominally using Rey-Remy device to completely close the hernia defect without any tension. Then, a 10.2 cm x 15.2 cm or 4 inches x 6 inches oval-shaped dual-corded Ventralight ST mesh was brought into the field, was oriented appropriately and marked such that the 4 quadrants were designated left, right, up and down. Then, 2-0 Prolene stitches were placed in each of the quadrants. The mesh was folded appropriately and a 5- mm trocar was placed in the right lateral abdomen. A grasper was placed transabdominally from the right lateral abdominal trocar to the left abdominal trocar and mesh was placed into the abdomen from the trocar sites. Once mesh was placed into the abdomen, it was unfurled and stay sutures were brought into the abdominal wall using Rey-Remy device and these were tied down. At this point, insufflation was 10 mmHg to allow the mesh to lie flat on the abdominal wall and not wrinkle when desufflation happens. Once this was done, additional sutures were placed between the anchoring sutures. They were placed in transabdominal again using Rey-Remy device with 2-0 Prolene sutures and tied down. This is to allow more robust anchoring of the mesh. When this was done, SorbaFix was used to place absorbable tacks around the mesh in a double crown fashion. Then, we injected local anesthetic around the surgical area to allow for local pain control. When this was done, the abdomen was inspected, there was no active bleeding and the procedure was concluded at this point. The patient will be allowed to recover and possibly return home today. If the patient for any reason cannot go home, then will be admitted for observation. MMODAL /[id number]
[2021-11-14] MEDS ORDERED: Acetaminophen/HYDROcodone 325-5 MG Tab PO PRN (14:07)
--- NOTE | 2021-11-14 16:27 | PCM48HPAN ---
Post Anesthesia Note - EVALUATION WITHIN 48HRS OF ANESTHETIC Vital Signs in Normal Range: Yes Patient Participated in Evaluation: Yes Respiratory Function Stable: Yes Airway Patent: Yes Cardiovascular Function Stable: Yes Hydration Status Stable: Yes Pain Control Satisfactory: Yes (surgeon aware of patient's pain level ) Nausea and Vomiting Control Satisfactory: Yes Mental Status Recovered: Yes Vital Signs: Last Vital Signs Temp 36.6 C 11/14/21 15:00 Pulse 58 L 11/14/21 15:30 Resp 12 11/14/21 15:30 BP 94/65 11/14/21 15:30 Pulse Ox 92 L 11/14/21 15:30
[2021-11-14] MEDS ORDERED: Albuterol 0.083% 2.5 MG/3 ML Neb Soln NEB ONE (17:39)
[2021-11-14] MEDS ORDERED: Ondansetron 4 MG Tab.DIS PO PRN (19:05)
[2021-11-14] MEDS ORDERED: Acetaminophen 325 MG Tab PO PRN (19:05)
[2021-11-14] MEDS: Acetaminophen/HYDROcodone 325-5 MG Tab PO PRN ×2 (19:30→23:14)
[2021-11-15] MEDS: Sodium Chloride 0.9% 10 ML Syringe FLUSH SCH (00:47)
[2021-11-15] MEDS: Ibuprofen 600 MG Tab PO PRN ×2 (02:06→10:25)
[2021-11-15] MEDS: Acetaminophen/HYDROcodone 325-5 MG Tab PO PRN ×2 (03:19→13:08)
== END 2021-11-15 14:08 | disposition home or self-care (01) ==
LOC: JD.SDS 08:12 → JD.OB 20:59 → JD.SDS 11-15 14:08
PROVIDERS: ATTEND Surgery
DX: K43.9 Ventral hernia without obstruction or gangrene (principal); F17.210 Nicotine dependence, cigarettes, uncomplicated; Z98.890 Other specified postprocedural states; Z79.899 Other long term (current) drug therapy; Z88.0 Allergy status to penicillin; Z88.2 Allergy status to sulfonamides
CPT/HCPCS: 49652; 94762; A9270; J0690; J1100; J1170; J2250; J2370; J2405; J2704; J2710; J3010; J3490; J7120; 00790; C1781

== ENCOUNTER 2025-07-12 02:07 | Emergency (ER) | payer SELFPAY ==
[2025-07-12 02:30] LABS: BASOPHILS ABSOLUTE AUTO 0.1 K/mm3 (0.0-0.2); BASOPHILS PERCENT AUTO 0.6 % (0.0-1.0); EOSINOPHILS ABSOLUTE AUTO 0.4 K/mm3 (0.0-0.4); EOSINOPHILS PERCENT AUTO 4.5 % (0.0-6.0); IMMATURE GRAN ABSOLUTE AUTO 0.04 K/mm3 (0.00-0.05); IMMATURE GRAN PERCENT AUTO 0.5 % (0.0-0.4); LYMPHOCYTES ABSOLUTE AUTO 3.3 K/mm3 (1.0-4.8); LYMPHOCYTES PERCENT AUTO 37.9 % (24.0-44.0); MEAN PLATELET VOLUME 11.4 fl (9.4-12.3); MONOCYTES ABSOLUTE AUTO 0.6 K/mm3 (0.0-0.8); MONOCYTES PERCENT AUTO 7.1 % (0.0-8.0); NEUTROPHILS ABSOLUTE AUTO 4.3 K/mm3 (1.8-7.7); NEUTROPHILS PERCENT AUTO 49.4 % (41.0-71.0); NRBC ABSOLUTE 0.00 (0.00-0.02); NRBC PERCENT 0.0 % (0.0-0.2); PLATELET COUNT,PLT 229 K/mm3 (150-400); RED BLOOD CELL COUNT 5.07 M/mm3 (4.10-5.30); WHITE BLOOD CELL COUNT,WBC 8.63 K/mm3 (3.9-11.3)
[2025-07-12] MEDS: Alum Hydrox/Mag Hydrox/Simeth 30 ML, Lidocaine 2% 15 ML PO ONE (02:57)
[2025-07-12 03:01] LABS: A/G RATIO 0.8 (1-2); ALANINE AMINOTRANSFERASE,ALT 20.0 U/L (14-59); ASPARTATE AMNIOTRANSFERASE,AST 18.0 U/L (15-37); BILIRUBIN TOTAL 0.3 mg/dL (0.2-1.0); BLOOD UREA NITROGEN,BUN 15.0 mg/dL (7-18); CARBON DIOXIDE,CO2 30.0 mEq/L (21-32); CHLORIDE,CL 108.0 mEq/L (98-107); CREATININE 0.9 mg/dL (0.55-1.02); EST CRCL DRUG DOSING (CG) 48.28 mL/min; ESTIMATED GFR 72.0 mL/min (>60); GLUCOSE RANDOM 110.0 mg/dL (70-99); PROTEIN TOTAL,TP 7.0 g/dl (6.4-8.2); SODIUM,NA 143.0 mEq/L (136-145); TROPONIN I HIGH SENSITIVITY 4.0 pg/mL (<=51)
[2025-07-12 03:06] LABS: POTASSIUM,K 4.7 mEq/L (3.5-5.1)
[2025-07-12] MEDS ORDERED: Sodium Chloride 0.9% 10 ML Syringe FLUSH PRN (03:06)
[2025-07-12] MEDS: Sodium Chloride 0.9% 10 ML Syringe FLUSH PRN (03:49)
[2025-07-12] MEDS: Iopamidol 755 Mg/ML 100 ML Bottle IVPUSH ONE (03:49)
== END 2025-07-12 06:00 ==
LOC: JD.ED 02:07
DX: I25.10 Atherosclerotic heart disease of native coronary artery without angina pectoris (principal); F17.210 Nicotine dependence, cigarettes, uncomplicated; Z88.0 Allergy status to penicillin; Z88.2 Allergy status to sulfonamides; Z79.899 Other long term (current) drug therapy
CPT/HCPCS: 36415; 71045; 71275; 80053; 83690; 83880; 84484; 85025; 93005; 96361; 96374; 99285; A9270; J1171; J3490; J7030; Q9967; 93010